=== PATIENT | female | born 1960 | race Caucasian/White ===

== ENCOUNTER 2020-08-23 05:31 | Day surgery (SDC) | payer OTHER ==
[2020-08-22 09:58] VITALS: BMI 41.0
[2020-08-23 10:12] VITALS: BP 117/74; PULSE 70; TEMP 98
== END 2020-08-23 10:02 | disposition home or self-care (01) ==
LOC: JASU-ENDO 05:31
PROVIDERS: ATTEND Internal Medicine Gastroenterology
PROC: 0DBL8ZX Excision of Transverse Colon, Via Natural or Artificial Opening Endoscopic, Diagnostic (ICD-10-PCS; 2020-08-23)
PROC: 0DBN8ZX Excision of Sigmoid Colon, Via Natural or Artificial Opening Endoscopic, Diagnostic (ICD-10-PCS; 2020-08-23)
PROC: 0DBK8ZX Excision of Ascending Colon, Via Natural or Artificial Opening Endoscopic, Diagnostic (ICD-10-PCS; 2020-08-23)
PROC: 0DB98ZX Excision of Duodenum, Via Natural or Artificial Opening Endoscopic, Diagnostic (ICD-10-PCS; 2020-08-23)
PROC: 0DB68ZX Excision of Stomach, Via Natural or Artificial Opening Endoscopic, Diagnostic (ICD-10-PCS; 2020-08-23)
PROC: 0DB28ZX Excision of Middle Esophagus, Via Natural or Artificial Opening Endoscopic, Diagnostic (ICD-10-PCS; 2020-08-23)
PROC: 0DB38ZX Excision of Lower Esophagus, Via Natural or Artificial Opening Endoscopic, Diagnostic (ICD-10-PCS; 2020-08-23)
PROC: 0DBP8ZX Excision of Rectum, Via Natural or Artificial Opening Endoscopic, Diagnostic (ICD-10-PCS; principal; 2020-08-23 08:00)
DX: Z12.11 Encounter for screening for malignant neoplasm of colon (principal); Z86.010 Personal history of colon polyps; K62.1 Rectal polyp; D12.5 Benign neoplasm of sigmoid colon; D12.3 Benign neoplasm of transverse colon; D12.2 Benign neoplasm of ascending colon; K29.80 Duodenitis without bleeding; K29.50 Unspecified chronic gastritis without bleeding
CPT/HCPCS: 88305-TC; 88342-TC